=== PATIENT | male | born 2000 | race Caucasian/White ===

== ENCOUNTER → 2022-03-08 | Outpatient (CLI) | payer BC ==
--- NOTE | 2022-03-08 13:15 | CT ---
EXAMINATION TYPE: CT brain wo con DATE OF EXAM: 03/08/2022 COMPARISON: None INDICATION: ongoing frontal headache x 1 week DLP: 1195 mGycm, Automated exposure control for dose reduction was used. CONTRAST: None CT of the brain is performed utilizing 3 mm thick sections through the posterior fossa and 3 mm thick sections through the remaining calvarium. Study is performed within 24 hours of [facility]. No abnormal hyperdensity is present to suggest an acute intracranial hemorrhage. No mass lesion is evident. No acute infarcts are evident. Ventricles and sulci are appropriate for the patient age. Small retention cysts are within the maxillary sinuses. Some minimal mucosal thickening is present. M ucosal thickening is throughout ethmoid air cells. Sphenoid and frontal sinuses are clear. Mastoid ai r cells are clear. IMPRESSIONS: 1. No acute intracranial process. Follow-up MRI can be performed as clinically indicated. 2. Clinical correlation recommended for Pansinusitis.
== END | disposition home or self-care (01) ==
LOC: RADCTMAIN 12:37
PROVIDERS: ATTEND Family Medicine
DX: R51.9 Headache, unspecified (principal)
CPT/HCPCS: 70450